=== PATIENT | female | born 2000 | race African-American/Black ===

== ENCOUNTER 2021-06-10 16:39 | Emergency (ER) | payer OTHER ==
[~2021-06-10] VITALS: Ht 154.9 cm; Wt 40.8 kg
[2021-06-10 17:09] LABS: URINE BILIRUBIN NEGATIVE (Negative); URINE BLOOD TRACE (Negative); URINE CLARITY CLEAR; URINE COLOR YELLOW; URINE GLUCOSE-RANDOM NEGATIVE (Negative); URINE KETONES 1+ (Negative); URINE LEUKOCYTES-REFLEX TRACE (Negative); URINE NITRITE-REFLEX NEGATIVE (Negative); URINE PROTEIN NEGATIVE (Negative); URINE UROBILINOGEN 0.2 E.U./dl (0.2-1.0)
[2021-06-10 17:19] LABS: BACTERIA-REFLEX 1-9 Few /HPF (None Seen); MUCUS 0-3 Light strn/LPF (None Seen); SQUAMOUS >10 Many /LPF (0-3); URINE RBC 0-2 Rare /HPF (0-2); URINE WBC-REFLEX 0-5 Rare /HPF (0-5)
[2021-06-10 17:20] LABS: CASTS None Seen /LPF (None Seen); CRYSTALS None Seen /LPF (None Seen)
[2021-06-10 18:04] LABS: ABSOLUTE EOSINOPHILS 0.3 thou/uL (0.0-0.7); ABSOLUTE LYMPHOCYTES 1.7 thou/uL (0.8-5.3); ABSOLUTE MONOCYTES 0.5 thou/uL (0.0-1.2); ABSOLUTE NEUTROPHILS 5.8 thou/uL (1.6-8.1); BASOPHILS 0.3 %; EOSINOPHILS 3.5 %; HEMATOCRIT 38.1 % (37.0-47.0); HEMOGLOBIN 12.9 gm/dL (12.0-15.0); LYMPHOCYTES 20.1 %; MCH 31.5 pg (26.0-34.0); MCHC 33.8 g/dL (28.0-37.0); MCV 93.2 fL (80.0-100.0); MPV 8.5 fl. (7.2-11.1); NUCLEATED RBCS 0 /100WBC; PLATELET COUNT* 252 thou/uL (150-400); POLYS 70.1 %; RBC 4.09 mil/uL (4.20-5.00); RDW-CV 13.4 % (10.5-14.5); WBC 8.3 thou/uL (4.0-11.0)
[2021-06-10 18:26] LABS: CALCIUM 8.9 mg/dL (8.5-10.1); CREATININE 0.7 mg/dL (0.6-1.3); POTASSIUM 3.5 mmol/L (3.5-5.1)
[2021-06-10 18:32] LABS: ALBUMIN 4.2 g/dL (3.4-5.0); TOTAL BILIRUBIN 0.8 mg/dL (<0.1-1.0); TOTAL PROTEIN 7.9 g/dL (6.4-8.2)
[2021-06-10 19:38] VITALS: BP 124/77
--- NOTE | 2021-06-11 10:03 | EKG ---
[place] [address] ELECTROCARDIOGRAM REPORT Name: WAN SANTILLAN Room: [facility]#: [id number] Admission: 06/10/21 Attend Phys: Discharge: 06/10/21 Date of : 89 Date of Service: 06/10/21 1646 Report #: [id number] THIS REPORT FOR: //name// [facility] ED Test Date: 2021-06-10 Test Time: 16:46:10 Pat Name: WAN SANTILLAN Department: Room: Gender: F [employer]visor [employer]: : 2000 Requested By: Danilo Le Order Number: [id number] MD: Quentin Manning Measurements Intervals [place] Rate: 67 P: 2 NE: 188 QRS: 72 QRSD: 75 T: 26 QT: 353 QTc: 373 Interpretive Statements Sinus rhythm No previous ECG available for comparison Electronically Signed On 06-11-2021 10:02:53 CDT by Quentin Manning [email or web address] <ELECTRONICALLY SIGNED> By: Antony Manning MD, [facility] 06/11/21 1002 1646 1646 Antony Manning MD, FACC /EPI
== END 2021-06-10 19:38 | disposition left against medical advice (07) ==
LOC: M.ERS 16:39
PROVIDERS: Physician Assistant
DX: R10.13 Epigastric pain (principal); F41.9 Anxiety disorder, unspecified; F32.9 Major depressive disorder, single episode, unspecified